=== PATIENT | female | born 1965 | race Caucasian/White ===

== ENCOUNTER 2016-09-13 17:10 | Emergency (ER) | payer OTHER ==
[~2016-09-13] VITALS: Ht 165.1 cm; Wt 81.1 kg
[~2016-09-13 17:10] MED LIST: ASPIR-TRIN325 M1 PO; AUGMENTIN875 MG PO; BLACK COHOSH PO; EVENING PRIMROSE PO; FLAXSEED OIL PO; MAGNESIUM200 MG PO; MOTRIN IB200 MG PO; MOTRIN800 MG PO; NOHOMEMEDS; PERCOCET 5/31 TABLET PO; VENTOLIN HFA18 GM; VENTOLIN HFA18 GM IH; WOMEN'S DAILY1 EAC1 PO; ZITHROMAX250 MG PO; ZOFRAN4 MG PO; [UNRECOGNIZED DRUG - OTHER] PO
[2016-09-13 17:48] LABS: HEMATOCRIT 44.4 % (36.0-46.0); MCH 31.7 PG (29.0-34.0); MCHC 34.2 G/DL (30.0-36.0); MCV 92.5 FL (83-99); MEAN PLAT.VOLUME 9.9 uM^3 (9.5-12.4); PLATELET COUNT 241 K/uL (156-360); RBC DIS.WIDTH-CV 12.4 % (11.8-14.6); RBC DIS.WIDTH-SD 42.5 % (39-53); WHITE BLOOD COUNT 5.4 K/uL (4.1-10.2)
[2016-09-13] MEDS ORDERED: METRO GEL 1%60 GM TP (17:59)
[2016-09-13] MEDS ORDERED: PRILOSEC OTC20 MG PO (17:59)
[2016-09-13 18:02] LABS: CHLORIDE 107 mEq/L (99-109); SODIUM 142 mEq/L (136-147)
[2016-09-13 18:03] LABS: GLUCOSE 97 mg/dL (70-99)
[2016-09-13 18:05] LABS: ANION GAP 11 MEQ/L (2-14)
[2016-09-13 18:07] LABS: GFR ESTIMATE (CALCULATED) 46 mL/min/
[2016-09-13 18:08] LABS: UREA NITROGEN (BUN) 31 mg/dL (9-23)
[2016-09-13 18:44] LABS: TROP-I INTERPRETATION NEGATIVE; TROPONIN-I < 0.01 ng/mL (0.0-0.30)
[2016-09-13 18:56] LABS: D-DIMER ELISA 0.25 mg/L FEU (< 0.57)
[2016-09-13 21:53] LABS: TROP-I INTERPRETATION NEGATIVE; TROPONIN-I < 0.01 ng/mL (0.0-0.30)
[2016-09-13 22:34] VITALS: BP 112/55
== END 2016-09-13 22:34 | disposition home or self-care (01) ==
LOC: EME 17:10 → EXP 17:10
PROVIDERS: Physician Assistant
DX: R07.9 Chest pain, unspecified (principal); K21.9 Gastro-esophageal reflux disease without esophagitis; A69.20 Lyme disease, unspecified; Z85.42 Personal history of malignant neoplasm of other parts of uterus; Z86.718 Personal history of other venous thrombosis and embolism
CPT/HCPCS: 71020; 80048; 84484; 85027; 85379; 93005; 99281; 99284